=== PATIENT | male | born 1960 | race Hispanic/Latino ===

== ENCOUNTER → 2019-01-23 | Day surgery (SDC) | payer BC ==
[~2019-01-23] MED LIST: FENTANYL CITRATE/PF 100MCG/2 ML INJ ONE; HYOSCYAMINE SULFATE 0.5 MG/ML INJ ONE; LIDOCAINE HCL 2% LOCAL INJ 5 ML SDV VIAL INJ ONE; MIDAZOLAM HCL 2 MG/2 ML VIAL ONE; PRAVASTATIN SOD40 MG PO; PROPOFOL IV EMULSION 10 MG/ML 50 ML VIAL ONE
[2019-01-23 17:40] VITALS: BP 128/79
--- NOTE | 2019-01-24 00:40 | Operative Report ---
DATE OF PROCEDURE: 01/23/2019 SURGEON: Bharath Genao MD PROCEDURE: Colonoscopy and polypectomy. REFERRING PHYSICIAN: Dr. Francis Reynolds. INDICATION FOR COLONOSCOPY: Colorectal cancer screening. MEDICATIONS: The patient was done under MAC, please see anesthesiologist's note. PROCEDURE IN DETAIL: With the patient in left lateral decubitus position, the flexible fiberoptic Olympus colonoscope was inserted into the rectum with ease and advanced all the way to the cecum. It was then withdrawn slowly and three polyps up to 1 cm in size were removed per snare electrocautery from the ascending colon. Of note, there were some minimal, but scattered diverticular disease. Three polyps were hot biopsied from the transverse colon. The descending colon grossly appeared to be within normal limits. One polyp was snared. One polyp was hot biopsied from the sigmoid colon, and one polyp was snared, two polyps were hot biopsied from the rectum. The scope was then retroflexed into the distal rectum and moderate-sized internal hemorrhoids were noted, none of which was actively bleeding. One of the polypectomy sites in the ascending colon was hemo-clipped. The scope was then straightened out, it was subsequently withdrawn. The patient tolerated the procedure well. IMPRESSION: 1. Diverticulosis, minimal, scattered. 2. Ascending colon polyps x3, removed per snare electrocautery and one polypectomy site hemo-clipped. 3. Transverse colon polyps x3, hot biopsied. 4. Sigmoid colon polyps x2, one snared and one hot biopsied. 5. Rectal polyps x3, one snared and 2 hot biopsied. 6. Internal hemorrhoids, none actively bleeding. PLAN: Follow up histology. Initiate high-fiber, low-fat diet. Initiate high-fiber supplement. Approximately 11 polyps were removed. The patient might benefit from a followup colonoscopy in 1 to 2 years. Bharath Genao MD [facility] [place]/AD /[id number] cc: Dr. Francis Reynolds
--- OUTSIDE RECORDS SUMMARY | 2019-01-25 14:38 | XMS REPORT | Summary of Care ---
Author Author Juan Berumen Organization Unknown Address Unknown Phone Unavailable Care Team Providers Care Licensed Mental Health Counselor Name Role Phone Marya Peter M.A. Unavailable Unavailable ANTOINETTE CRUZ Unavailable Unavailable Unavailable Unavailable Functional Status Name Dates Details Functional status health issues are not documented Status: Name Dates Details Cognitive status health issues are not documented Status: Problems Name Dates Details Seasonal allergic rhinitis, unspecified allergic rhinitis trigger Status: Active Mixed hyperlipidemia (272.2, E78.2) Status: Active Lipoma of skin and subcutaneous tissue (214.1, D17.30) Status: Active Need for hepatitis C screening test (V73.89, Z11.59) Status: Active Colon cancer screening (V76.51, Z12.11) Status: Active Chronic pain of left knee (719.46, M25.562) Status: Active Vaccination refused by patient (V64.06, Z28.21) Status: Active Abnormal EKG (794.31, R94.31) Status: Active Negative depression screening (V79.0, Z13.31) Status: Active Medications Name Dates Details Pravastatin Sodium 40 MG Oral Tablet TAKE 1 TABLET DAILY. Quantity: 90 ANTOINETTE CRUZ * Start : 24-Feb-2018 Active Allergies and Adverse Reactions Name Dates Details No Known Drug Allergies (Allergy) Status: Active Procedures Procedure Dates Details History of No history of surgery Completed Immunization Name Dates Details Immunizations not documented Family History Name Dates Details No significant family history (V49.89, Z78.9) Status: Active Name Dates Details No significant family history (V49.89, Z78.9) Status: Active Social History Name Dates Details - Status: Name Dates Details Never smoker Vital Signs Date Test Result Details No Known Vitals to report Results Date Description Value Details Results not documented Plan of Care Name Dates Details Planned Observations Planned Goals not documented Interventions Provided Follow-ups/Referrals* Gastroenterology Referral; To Be Done: 01 Jan 2019 Instructions Name Dates Details Instructions not documented Encounters Appointment; VIMAL BARRY M.D. Encounter Diagnosis: Problem not documented On: 02-Jun-2017 14:00 Appointment; VIMAL BARRY M.D. Encounter Diagnosis: Problem not documented On: 27-Jun-2017 8:15 Appointment; VIMAL BARRY M.D. Encounter Diagnosis: Problem not documented On: 23-Mar-2018 9:45 Appointment; ANTOINETTE OLGUIN P.A. Encounter Diagnosis: Problem not documented On: 04-Aug-2018 8:45
== END | disposition home or self-care (01) ==
LOC: OR 13:57
PROVIDERS: ATTEND Internal Medicine Gastroenterology
DX: Z12.11 Encounter for screening for malignant neoplasm of colon (principal); D12.2 Benign neoplasm of ascending colon; D12.3 Benign neoplasm of transverse colon; D12.5 Benign neoplasm of sigmoid colon; D12.8 Benign neoplasm of rectum; K57.30 Diverticulosis of large intestine without perforation or abscess without bleeding; K64.8 Other hemorrhoids; Z01.810 Encounter for preprocedural cardiovascular examination; Z68.27 Body mass index [BMI] 27.0-27.9, adult
CPT/HCPCS: 45384; 45385; 93005; J1980; J2001; J2250; J2704

== ENCOUNTER → 2020-11-03 | Day surgery (SDC) | payer BC ==
[~2020-11-03] MED LIST changes: +KETAMINE HCL INJ 50 MG/ML 10 ML VIAL ONE; -LIDOCAINE HCL 2% LOCAL INJ 5 ML SDV VIAL INJ ONE; +PROPOFOL IV EMULSION 10 MG/ML 20 ML VIAL ONE; -PROPOFOL IV EMULSION 10 MG/ML 50 ML VIAL ONE
[2020-11-03 14:45] VITALS: BP 128/88
== END | disposition home or self-care (01) ==
LOC: OR 09:27
PROVIDERS: ATTEND Internal Medicine Gastroenterology
DX: Z09 Encounter for follow-up examination after completed treatment for conditions other than malignant neoplasm (principal); D12.3 Benign neoplasm of transverse colon; K57.30 Diverticulosis of large intestine without perforation or abscess without bleeding; K64.8 Other hemorrhoids; Z01.810 Encounter for preprocedural cardiovascular examination; Z01.812 Encounter for preprocedural laboratory examination; Z20.822 Contact with and (suspected) exposure to COVID-19
CPT/HCPCS: 45384; 93005; J1980; J2250; J2704; J3010; U0002 ×2; 45378

== ENCOUNTER → 2022-08-13 | Day surgery (SDC) | payer BC ==
[~2022-08-13] MED LIST changes: +ACETAMINOPHEN-1 EAC4 PO; +BUPIVACAINE 0.5%/EPI 30 ML SDV INJ ONE; +BUPIVACAINE HCL 0.5% INJ 30 ML VIAL INJ ONE; +DEXAMETHASONE SOD PHOS INJ 4 MG/ML SDV ONE; +EPHEDRINE SULFATE INJ 50 MG/ML VIAL ONE; -FENTANYL CITRATE/PF 100MCG/2 ML INJ ONE; +FLUMAZENIL 0.5MG/ 5ML VIAL ONE; -HYOSCYAMINE SULFATE 0.5 MG/ML INJ ONE; -KETAMINE HCL INJ 50 MG/ML 10 ML VIAL ONE; +LIDOCAINE HCL 2% LOCAL INJ 5 ML SDV VIAL INJ ONE; -MIDAZOLAM HCL 2 MG/2 ML VIAL ONE; +MUPIROCIN 2% OINT 22 GM TUBE ONE; +NALOXONE HCL INJ 0.4 MG/ML AMP ONE; +ONDANSETRON HCL INJ 2MG/ML 2ML 2 MG/ML VIAL ONE; +POVIDONE IODINE 0.05% 0.05 % ML PO ONE; +SEVOFLURANE INHAL SOLN 250 ML PEN BTL ONE; +VITAMIN D250 MCG PO
[2022-08-13 08:10] VITALS: BP 141/80
== END | disposition home or self-care (01) ==
LOC: OR 06:22
PROVIDERS: ATTEND Plastic Surgery
DX: D17.0 Benign lipomatous neoplasm of skin and subcutaneous tissue of head, face and neck (principal); R06.83 Snoring; E78.5 Hyperlipidemia, unspecified; Z01.810 Encounter for preprocedural cardiovascular examination; Z79.899 Other long term (current) drug therapy
CPT/HCPCS: 21012; 88304; 93005; J0690; J1100; J2001; J2310; J2405; J2704